=== PATIENT | male | born 1960 | race Caucasian/White ===

== ENCOUNTER 2018-12-02 18:41 | Emergency (ER) | payer SELFPAY ==
[~2018-12-02] VITALS: Ht 180.3 cm; Wt 81.6 kg
--- OUTSIDE RECORDS SUMMARY | 2018-12-02 18:47 | XMS REPORT | Continuity of Care Document ---
Author Author [facility] Organization [facility] Address Unknown Phone Unavailable Allergies Active Description Code Type Severity Reaction Onset Reported/Identified Relationship to Patient Clinical Status Yes No Known Medication Allergies Drug N/A N/A Medications There is no data. Problems There is no data. Procedures There is no data. Results There is no data. Encounters ACCT No. Visit Date/Time Discharge Status Pt. Type Provider Facility Loc./Unit Complaint [id number] 08/21/2018 07:33:40 08/21/2018 23:59:59 DIS Outpatient THOMAS GOODMAN [facility] [id number] 08/21/2018 00:53:00 08/21/2018 03:40:00 DIS Emergency THOMAS GOODMAN [facility] ER
[2018-12-02] MEDS ORDERED: HYDROcodone/APAP 5 MG/325 MG (LORTAB) TAB PO STA (19:03)
--- NOTE | 2018-12-02 19:07 | ED Upper Extremity ---
General Chief Complaint: Upper Extremity Stated Complaint: LT HAND MIDDLE DIGIT SMASHED History of Present Illness Date Seen by Provider: Dec 02, 2018 Time Seen by Provider: 18:56 This is a 58-year-old man with no chronic medical problems and takes no medicines on a regular basis here with a left third finger injury that occurred shortly prior to arrival. He slammed it with a car door. He has constant, moderate, throbbing, nonradiating pain is worse with direct palpation over the distal third finger. No other injuries. Allergies and Home Medications Allergies Coded Allergies: No Known Drug Allergies (Unverified , 12/02/18) Patient Home Medication List Home Medication List Reviewed: Yes Review of Systems Constitutional: no symptoms reported EENTM: no symptoms reported Respiratory: no symptoms reported Cardiovascular: no symptoms reported Gastrointestinal: no symptoms reported Genitourinary: no symptoms reported Musculoskeletal: see HPI Skin: no symptoms reported Psychiatric/Neurological: No Symptoms Reported Past Lmtuidy-Sqxmwt-Ioemgq Hx Past Med/Social Hx: Reviewed Nursing Past Med/Soc Hx Patient Social History Recent Foreign Travel: No Contact w/Someone Who Travel: No Physical Exam Vital Signs Vital Signs - First Documented 12/02/18 19:02 Temp 98.3 Pulse 82 Resp 14 B/P (MAP) 141/52 (81) Pulse Ox 97 O2 Delivery Room Air Capillary Refill : Height, Weight, BMI Height: '" Weight: lbs. oz. kg; BMI Method: General Appearance: no apparent distress HEENT: PERRL/EOMI Neck: supple Cardiovascular: normal peripheral pulses, regular rate, rhythm Respiratory: lungs clear Gastrointestinal: non tender, soft Hand: swelling (there is ecchymosis over the palmar distal third digit of the left hand, there is no skin break, there is no subungual hematoma, range of motion is limited by pain and swelling) Neurologic/Tendon: other (sensation to light touch is grossly intact in the affected digit, motor function is also grossly intact with limited range of motion as documented above) Skin: warm/dry Progress/Results/Core Measures Results/Orders My Orders Orders - LONA HARRIS DO Hydrocodone/Apap 5/325 Tablet (Lortab 5 (12/02/18 19:03) Hand 2 View Left (12/02/18 19:03) Vital Signs/I&O 12/02/18 19:02 Temp 98.3 Pulse 82 Resp 14 B/P (MAP) 141/52 (81) Pulse Ox 97 O2 Delivery Room Air Progress Progress Note #1: Progress Note We'll obtain an x-ray. Will apply ice and elevate the hand. We will treat with [place] for analgesia. Progress Note #2: Progress Note Splint applied, RICE reviewed, f/u ortho. Return if worse. Departure Impression Primary Impression: Fracture of phalanx of hand Disposition: HOME, SELF-CARE Condition: Stable Departure-Patient Inst. Referrals: NO,LOCAL PHYSICIAN (PCP) Primary Care Physician Patient Instructions: Finger Fracture Scripts Hydrocodone/Acetaminophen ([place] 5-325 Tablet) 1 Each Tablet 1 TAB PO Q6H for Pain MDD 10 TABS for 4 Days, #16 TAB Prov: LONA HARRIS DO 12/02/18 LONA HARRIS DO Dec 02, 2018 19:07
--- NOTE | 2018-12-02 19:15 | Diagnostic Imaging Report ---
INDICATION: Trauma, pain to the middle finger of the left hand Two views of the left hand show a nondisplaced intra-articular fracture involving the dorsal aspect of the distal phalanx at the DIP joint of the third finger. No other abnormality is seen. IMPRESSION: There is an intra-articular fracture of the distal phalanx of the left third finger. Dictated by: Dictated on workstation # [id number]
[2018-12-02] MEDS ORDERED: HYDR-4226 PO (19:20)
[2018-12-02 19:36] VITALS: BP 132/64
== END 2018-12-02 19:36 | disposition home or self-care (01) ==
LOC: ER FS 18:43
DX: S62.633A Displaced fracture of distal phalanx of left middle finger, initial encounter for closed fracture (principal); W23.1XXA Caught, crushed, jammed, or pinched between stationary objects, initial encounter
CPT/HCPCS: 26755; 73120

== ENCOUNTER → 2019-01-09 | Outpatient (CLI) | payer MEDICAID ==
[~2019-01-09] MED LIST: HYDR-4226 PO
--- NOTE | 2019-01-09 10:55 | Diagnostic Imaging Report ---
Indication: Smashed left third finger one month ago. Time of exam 10:34 AM Correlation is made with prior radiographs from 12/02/2018. A fracture at the base of the distal phalanx third finger is again seen. A fracture line remains visible consistent with incomplete healing. Alignment is similar to prior exam. No new abnormality is identified. Impression: A fracture involving the base of the distal phalanx third finger remains clearly visible without significant healing. Dictated by: Dictated on workstation # [id number]
== END ==
LOC: RAD FS 10:29
PROVIDERS: ATTEND Nurse Practitioner
DX: S62.633D Displaced fracture of distal phalanx of left middle finger, subsequent encounter for fracture with routine healing (principal); W23.0XXD Caught, crushed, jammed, or pinched between moving objects, subsequent encounter
CPT/HCPCS: 73140

== ENCOUNTER → 2019-02-02 | Outpatient (CLI) | payer MEDICAID ==
--- NOTE | 2019-02-02 16:43 | Diagnostic Imaging Report ---
INDICATION: Fracture, followup. TECHNIQUE: Three views left middle finger 2:36 PM. CORRELATION STUDY: 01/09/2019 FINDINGS: Fracture at the base of the distal phalanx of the middle finger is again demonstrated. Fracture line remains well visualized. There is very little if any interval healing suggested. Slight dorsal displacement of the most proximal fracture fragment is unchanged. Fracture lines do involve the distal phalangeal joint. Proximal middle phalanx unremarkable. IMPRESSION: 1. Relatively stable appearance about a mildly displaced, comminuted fracture at the base of the distal phalanx of the third finger. Fracture lines remain well-visualized with slight dorsal displacement of the main proximal fracture fragment. Dictated by: Dictated on workstation # [id number]
== END ==
LOC: RAD FS 14:31
PROVIDERS: ATTEND Nurse Practitioner
DX: S62.632D Displaced fracture of distal phalanx of right middle finger, subsequent encounter for fracture with routine healing (principal)
CPT/HCPCS: 73140

== ENCOUNTER → 2019-06-22 | Outpatient (CLI) | payer MEDICAID | LOC: CARD 08:29 | PROVIDERS: ATTEND Nurse Practitioner | DX: R06.81 Apnea, not elsewhere classified (principal); R20.2 Paresthesia of skin; R41.0 Disorientation, unspecified; Z86.73 Personal history of transient ischemic attack (TIA), and cerebral infarction without residual deficits | CPT/HCPCS: 93306 ==

== ENCOUNTER 2019-08-07 19:32 | Outpatient (CLI) | payer MEDICAID | END 2019-08-08 06:44 | disposition home or self-care (01) | LOC: SLEEP 19:32 | PROVIDERS: ATTEND Nurse Practitioner | DX: G47.33 Obstructive sleep apnea (adult) (pediatric) (principal); L30.9 Dermatitis, unspecified; R20.2 Paresthesia of skin; R41.0 Disorientation, unspecified; Z86.73 Personal history of transient ischemic attack (TIA), and cerebral infarction without residual deficits; Z87.891 Personal history of nicotine dependence | CPT/HCPCS: 95810 ==

== ENCOUNTER 2020-04-29 11:25 | Emergency (ER) | payer MEDICAID ==
[~2020-04-29] VITALS: Ht 181 cm; Wt 84.0 kg
--- NOTE | 2020-04-29 11:52 | ED Back Pain ---
General Chief Complaint: Back Problems Stated Complaint: BACK PAIN Source of Information: Patient History of Present Illness Date Seen by Provider: Apr 29, 2020 Time Seen by Provider: 11:48 Initial Comments 60 year-old male presents with right low back pain after fall down 3 steps inside his house today. States he landed on his right low back. Pain localized without radiation or lower extremities. Denies any weakness or incoordination. States he can walk fine. No loss of bowel or bladder control. Has taken nothing for pain Allergies and Home Medications Allergies Coded Allergies: No Known Drug Allergies (Unverified , 12/02/18) Home Medications Hydrocodone/Acetaminophen 1 Each Tablet, 1 TAB PO Q6H Prescribed by: LONA HARRIS on 12/02/181919 Patient Home Medication List Home Medication List Reviewed: Yes Review of Systems Constitutional: no symptoms reported; No dizziness, No fever, No malaise, No weakness Respiratory: No cough, No dyspnea on exertion, No short of breath Cardiovascular: No chest pain, No edema, No palpitations Gastrointestinal: No abdominal pain, No vomiting Musculoskeletal: back pain; No joint pain; muscle pain Skin: No change in color, No lumps, No rash Psychiatric/Neurological: Denies Numbness, Denies Paresthesia Past Cdyuere-Rqcreo-Eylgnc Hx Past Med/Social Hx: Reviewed Nursing Past Med/Soc Hx Patient Social History Alcohol Use: Denies Use Recreational Drug Use: No Smoking Status: Current Everyday Smoker Type Used: Cigarettes 2nd Hand Smoke Exposure: No Recent Foreign Travel: No Contact w/Someone Who Travel: No Recent Hopitalizations: No Physical Abuse: No Sexual Abuse: No Mistreated: No Fear: No Seasonal Allergies Seasonal Allergies: No Past Medical History Surgeries: Yes (Hernia repair x2) Respiratory: No Sleep Apnea Cardiac: No Neurological: Yes (restless leg syndrome) Genitourinary: No Gastrointestinal: No Musculoskeletal: No Endocrine: No HEENT: No Cancer: No Psychosocial: No Integumentary: No Blood Disorders: No Adverse Reaction/Blood Tranf: No Physical Exam Vital Signs Vital Signs - First Documented 04/29/20 11:35 Temp 37.1 Pulse 82 Resp 18 B/P (MAP) 132/81 (98) Pulse Ox 98 O2 Delivery Room Air Capillary Refill : Height, Weight, BMI Height: 5'11.00" Weight: 180lbs. oz. 81.913307wl; BMI Method:Stated General Appearance: No Apparent Distress, WD/WN Neck: Full Range of Motion, Non Tender, Supple Cardiovascular: Regular Rate, Rhythm, No Edema Respiratory: Chest Non Tender, Lungs Clear Gastrointestinal: Non Tender, Soft Back: Normal Inspection, Decreased Range of Motion (2 to discomfort), Muscle Spasm (R paraspinal ms), Vertebral Tenderness (generalized mid lumbar spine) Extremity: Normal Capillary Refill, Non Tender, No Pedal Edema Neurologic/Psychiatric: Alert, Oriented x3, No Motor/Sensory Deficits, Normal Mood/Affect Skin: Normal Color, Warm/Dry, Other (no ecchymosis or abrasion) Progress/Results/Core Measures Results/Orders My Orders Orders - RADHA JOINER DO Lumbar Spine 2 Or 3 View (04/29/20 11:46) Vital Signs/I&O 04/29/20 11:35 Temp 37.1 Pulse 82 Resp 18 B/P (MAP) 132/81 (98) Pulse Ox 98 O2 Delivery Room Air Departure Impression Primary Impression: Strain of lumbar spine Qualified Codes: S39.012A - Strain of muscle, fascia and tendon of lower back, initial encounter Disposition: HOME, SELF-CARE Condition: Stable Departure-Patient Inst. Decision time for Depature: 12:30 Referrals: [facility] (PCP/Family) Primary Care Physician Patient Instructions: Lumbar Muscle Strain (DC) Scripts Ibuprofen (Ibuprofen) 800 Mg Tablet 800 MG PO Q8H PRN for PAIN, #30 TAB 0 Refills Prov: RADHA JOINER DO 04/29/20 Cyclobenzaprine HCl (Cyclobenzaprine HCl) 10 Mg Tablet 10 MG PO Q8H PRN for SPASMS, #20 TAB 0 Refills Prov: RADHA JOINER DO 04/29/20 Work/School Note: Work Release Form Date Seen in the Emergency Department: Apr 29, 2020 RADHA JOINER DO Apr 29, 2020 11:52
--- NOTE | 2020-04-29 12:22 | Diagnostic Imaging Report ---
INDICATION: Fall and low back pain. TIME OF EXAM: 12:07 p.m. EXAMINATION: AP and lateral views of the lumbar spine were obtained. FINDINGS: Curvature and alignment is normal. Vertebral body heights are maintained. No acute compression fractures are seen. Disc spaces are preserved. IMPRESSION: No acute bony abnormality is detected. Dictated by: Dictated on workstation # [id number]
[2020-04-29] MEDS ORDERED: IBUP-1780 PO (12:30)
[2020-04-29] MEDS ORDERED: CYCL10TA9 PO (12:30)
[2020-04-29 12:36] VITALS: BP 133/67
== END 2020-04-29 12:36 | disposition home or self-care (01) ==
LOC: EDUNIT# 11:25 → ER FS 11:27
DX: S39.012A Strain of muscle, fascia and tendon of lower back, initial encounter (principal); F17.210 Nicotine dependence, cigarettes, uncomplicated; W10.9XXA Fall (on) (from) unspecified stairs and steps, initial encounter; Y92.009 Unspecified place in unspecified non-institutional (private) residence as the place of occurrence of the external cause
CPT/HCPCS: 72100

== ENCOUNTER 2021-11-16 13:25 | Emergency (ER) | payer MEDICAID ==
[~2021-11-16 13:25] MED LIST changes: +CYCL10TA25 PO; +IBUP-1780 PO
--- NOTE | 2021-11-16 13:56 | ED General ---
General Chief Complaint: Abdominal/GI Problems Stated Complaint: LEFT SIDE PAIN Nursing Triage Note: PT REPORTS HE LIFTED 2 TOILETS OFF OF A TRAILER YESTERDAY AND NOW HIS LEFT SIDE HURTS FROM HIS RIBS DOWN INTO LOWER ABDOMEN. Source of Information: Patient History of Present Illness Date Seen by Provider: Nov 16, 2021 Time Seen by Provider: 13:33 Initial Comments 61-year-old male presenting with complaints of pain to his left side of his chest and abdomen. He states this started 1 week ago when he was lifting toilets and having to move them in a small space. This was forcing him to lift the toilet and then twist and set it back down. In the process of doing this he was causing pain to his left side of his chest and abdomen. He denies any direct trauma or fall. He was trying Tylenol for the pain but it was not helping. He thought that he had may be pulled a muscle but since he was still having pain he came to the ED to be checked out. Timing/Duration: 1 Week Severity: Severe Modifying Factors: worse with Movement Associated Systoms: No Cough, No Diaphoresis, No Fever/Chills, No Headaches, No Loss of Appetite, No Malaise, No Nausea/Vomiting, No Rash, No Seizure, No Shortness of Air, No Syncope, No Weakness Allergies and Home Medications Allergies Coded Allergies: No Known Drug Allergies (Unverified , 12/02/18) Patient Home Medication List Home Medication List Reviewed: Yes Cyclobenzaprine HCl (Cyclobenzaprine HCl) 10 Mg Tablet, 10 MG PO BID PRN for MUSCLE SPASMS Prescribed by: ULYSSES BRANDT on 11/16/21 1532 Ibuprofen (Ibuprofen) 800 Mg Tablet, 800 MG PO Q8H PRN for PAIN Prescribed by: ULYSSES BRANDT on 11/16/21 1532 Discontinued Medications Cyclobenzaprine HCl (Cyclobenzaprine HCl) 10 Mg Tablet, 10 MG PO Q8H PRN for SPASMS Prescribed by: RADHA JOINER on 04/29/20 1230 Hydrocodone/Acetaminophen (Hydrocodone/Acetaminophen 5 MG/325 MG TAB) 1 Each Tablet, 1 TAB PO Q6H Prescribed by: LONA HARRIS on 12/02/18 1920 Ibuprofen (Ibuprofen) 800 Mg Tablet, 800 MG PO Q8H PRN for PAIN Prescribed by: RADHA JOINER on 04/29/20 1230 Review of Systems Review of Systems Constitutional: No chills, No fever EENTM: no symptoms reported Respiratory: no symptoms reported; No cough, No short of breath Cardiovascular: see HPI Gastrointestinal: see HPI; No constipation, No diarrhea, No nausea, No vomiting Genitourinary: No dysuria, No frequency, No hematuria Musculoskeletal: muscle cramps (Left-sided chest and abdominal wall) Skin: No change in color Psychiatric/Neurological: No Symptoms Reported Hematologic/Lymphatic: No Symptoms Reported Past Vewemno-Wvwpeh-Nubvjt Hx Patient Social History Tobacco Use?: Yes Tobacco type used: Cigarettes Smoking Status: Current Everyday Smoker Use of E-Cig and/or Vaping dev: No Substance use?: No Alcohol Use?: No Pt feels they are or have been: No Seasonal Allergies Seasonal Allergies: No Past Medical History Surgery/Hospitalization HX: HERNIA Surgeries: Yes (Hernia repair x2) Respiratory: No Sleep Apnea Cardiac: No Neurological: Yes (restless leg syndrome) Genitourinary: No Gastrointestinal: No Musculoskeletal: No Endocrine: No HEENT: No Cancer: No Psychosocial: No Integumentary: No Blood Disorders: No Adverse Reaction/Blood Tranf: No Physical Exam Vital Signs Vital Signs - First Documented 11/16/21 13:30 Temp 37.2 Pulse 68 Resp 18 B/P (MAP) 138/63 (88) Pulse Ox 98 O2 Delivery Room Air Capillary Refill : Less Than 3 Seconds Height, Weight, BMI Height: 5'11.00" Weight: 180lbs. oz. 81.086902zv; 25.00 BMI Method:Stated General Appearance: No Apparent Distress Neck: Full Range of Motion, Normal Inspection, Non Tender, Supple Respiratory: Lungs Clear, Normal Breath Sounds, No Accessory Muscle Use, No Respiratory Distress, Other (Tender to palpation on the left side of the chest wall without crepitus) Cardiovascular: Regular Rate, Rhythm, Normal Peripheral Pulses Gastrointestinal: Normal Bowel Sounds, No Pulsatile Mass, Soft; No Distended, No Guarding, No Rebound; Tenderness (Mild tenderness of the left side of the abdominal wall without rebound or guarding) Extremity: Normal Capillary Refill, Normal Inspection, No Pedal Edema Neurologic/Psychiatric: Alert, Oriented x3, knee bolter II-XII Norm as Tested Skin: Normal Color, Warm/Dry Progress/Results/Core Measures Suspected Sepsis SIRS Temperature: Pulse: 68 Respiratory Rate: 18 Blood Pressure 138 /63 Mean: 88 Results/Orders Lab Results Laboratory Tests Test 11/16/21 13:30 Range/Units Urine Color YELLOW Urine Clarity CLEAR Urine pH 6.5 5-9 Urine Specific [place] 1.015 L 1.016-1.022 Urine Protein NEGATIVE NEGATIVE Urine Glucose (UA) NEGATIVE NEGATIVE Urine Ketones NEGATIVE NEGATIVE Urine Nitrite NEGATIVE NEGATIVE Urine Bilirubin NEGATIVE NEGATIVE Urine Urobilinogen 0.2 < = 1.0 MG/DL Urine Leukocyte Esterase NEGATIVE NEGATIVE Urine RBC (Auto) NEGATIVE NEGATIVE Urine RBC 0-2 /HPF Urine WBC RARE /HPF Urine Crystals NONE /LPF Urine Bacteria NEGATIVE /HPF Urine Casts NONE /LPF Urine Mucus LARGE H /LPF Urine Culture Indicated NO Urine Opiates Screen NEGATIVE NEGATIVE Urine Oxycodone Screen NEGATIVE NEGATIVE Urine Methadone Screen NEGATIVE NEGATIVE Urine Propoxyphene Screen NEGATIVE NEGATIVE Urine Barbiturates Screen NEGATIVE NEGATIVE Ur Tricyclic Antidepressants Screen NEGATIVE NEGATIVE Urine Phencyclidine Screen NEGATIVE NEGATIVE Urine Amphetamines Screen NEGATIVE NEGATIVE Urine Methamphetamines Screen NEGATIVE NEGATIVE Urine Benzodiazepines Screen NEGATIVE NEGATIVE Urine Cocaine Screen NEGATIVE NEGATIVE Urine Cannabinoids Screen NEGATIVE NEGATIVE My Orders Orders - ULYSSES BRANDT MD Ua Culture If Indicated (11/16/21 13:31) Ct Abdomen/Pelvis Wo (11/16/21 13:31) Drug Screen Stat (Urine) (11/16/21 13:31) Vital Signs/I&O 11/16/21 11/16/21 13:30 15:10 Temp 37.2 37.2 Pulse 68 69 Resp 18 18 B/P (MAP) 138/63 (88) 137/66 Pulse Ox 98 98 O2 Delivery Room Air Room Air Capillary Refill : Less Than 3 Seconds Blood Pressure Mean: 88 Progress Note #1: Progress Note Initially ordered work-up for possible kidney stone however with his symptoms being more related to lifting and moving things reduce that to his urine test and drug screen in case narcotics need to be ordered. Also ordered a CT scan of the abdomen and pelvis without contrast to evaluate for possible kidney stone or intra-abdominal process to be contributing to his pain Progress Note #2: Progress Note No acute significant normality on his urinalysis or drug screen. His CT scan did not show any acute intra-abdominal process to account for his pain. Treat with a muscle relaxer and anti-inflammatories. Counseled to follow-up through the clinic for continued concerns Diagnostic Imaging Diagonstic Imaging: CT Plain Films/CT/US/NM/MRI: abdomen, pelvis Comments [facility] [place], [place] NAME: ISAAK MIRANDA [facility] REC#: [id number] PT STATUS: REG ER : 1960 PHYSICIAN: ULYSSES BRANDT MD ADMIT DATE: 11/16/21/ER FS Signed Date of Exam:11/16/21 CT ABDOMEN/PELVIS WO EXAMINATION: CT abdomen and pelvis without contrast. TECHNIQUE: Multiple contiguous axial images were obtained through the abdomen and pelvis without the use of intravenous contrast. All CT scans use one or more of the following dose optimizing techniques: automated exposure control, MA and/or KvP adjustment based on patient size and exam type or iterative reconstruction. HISTORY: Flank pain. COMPARISON: None available. FINDINGS: Lung bases: The lung bases are clear. Solid organs: A subcentimeter right hepatic cyst is present. The liver is otherwise unremarkable. The gallbladder is normal. There is no biliary ductal dilation. Pancreas is normal. Spleen is normal. Adrenal glands are normal. The kidneys are normal without visualized calculus or hydronephrosis. Bowel: The stomach and small bowel are normal without obstruction. The colon and appendix are normal. Peritoneum: There is no intraperitoneal free fluid or free air. No suspicious lymphadenopathy. Vasculature: Calcification of the aorta without aneurysm. Musculoskeletal: No suspicious osseous lesion or compression fracture. Pelvis: The prostate gland is normal. There is bladder wall thickening. IMPRESSION: 1. No visualized renal calculus or hydronephrosis. No other acute abnormality in the abdomen or pelvis. 2. Mild bladder wall thickening. Recommend correlation with urinalysis. Dictated by: Dictated on workstation # [id number] Dict: 11/16/21 1349 Trans: 11/16/21 140 [id number] Interpreted by: KISHORE DURAN DO Electronically signed by: KISHORE DURAN DO 11/16/21 1407 Reviewed: Reviewed by Me Departure Impression Primary Impression: Muscle strain of chest wall Qualified Codes: S29.011A - Strain of muscle and tendon of front wall of thorax, initial encounter Additional Impression: Strain of muscle, fascia and tendon of abdomen, initial encounter Disposition: HOME, SELF-CARE Condition: Stable Departure-Patient Inst. Decision time for Depature: 15:32 Referrals: WILY GREGG APRN (PCP/Family) Primary Care Physician Patient Instructions: Muscle Strain ED, Abdominal Muscle Strain ED Add. Discharge Instructions: alternate ice and heat to chest and abdominal wall to help with muscle strain. Take the muscle relaxer and anti-inflammatory medicine to help with muscle str ain and inflammation. Check with clinic if not improving or having continued problems All discharge instructions reviewed with patient and/or family. Voiced understanding. Scripts Ibuprofen (Ibuprofen) 800 Mg Tablet 800 MG PO Q8H PRN for PAIN for 10 Days, #30 TAB 0 Refills Prov: ULYSSES BRANDT MD 11/16/21 Cyclobenzaprine HCl (Cyclobenzaprine HCl) 10 Mg Tablet 10 MG PO BID PRN for MUSCLE SPASMS for 10 Days, #20 TAB 0 Refills Prov: ULYSSES BRANDT MD 11/16/21 ULYSSES BRANDT MD Nov 16, 2021 13:55
[2021-11-16 14:09] LABS: BILIRUBIN,URINE NEGATIVE (NEGATIVE); CLARITY,URINE CLEAR; COLOR,URINE YELLOW; GLUCOSE, URINE (UA) NEGATIVE (NEGATIVE); KETONES,URINE NEGATIVE (NEGATIVE); LEUKOCYTE ESTERASE ,URINE NEGATIVE (NEGATIVE); NITRITE,URINE NEGATIVE (NEGATIVE); PH,URINE 6.5 (5-9); PROTEIN,URINE NEGATIVE (NEGATIVE)
[2021-11-16 14:12] LABS: BACTERIA,URINE NEGATIVE /HPF; RBC,URINE 0-2 /HPF; WBC,URINE RARE /HPF
[2021-11-16 14:20] LABS: AMPHETAMINE SCREEN, URINE NEGATIVE (NEGATIVE); BARBITURATE SCREEN URINE NEGATIVE (NEGATIVE); BENZODIAZEPINES SCREEN URINE NEGATIVE (NEGATIVE); CANNABINOID SCREEN, URINE NEGATIVE (NEGATIVE); COCAINE SCREEN URINE NEGATIVE (NEGATIVE); METHADONE STAT NEGATIVE (NEGATIVE); METHAMPHETAMINE SCREEN URINE S NEGATIVE (NEGATIVE); OPIATE SCREEN URINE NEGATIVE (NEGATIVE); OXYCODONE STAT NEGATIVE (NEGATIVE); PROPOXYPHENE STAT NEGATIVE (NEGATIVE); TRICYCLIC ANTIDEPRESSANTS SCRE NEGATIVE (NEGATIVE)
[2021-11-16 15:10] VITALS: BP 137/66
[2021-11-16] MEDS ORDERED: IBUP-1780 PO (15:32)
[2021-11-16] MEDS ORDERED: CYCL10TA25 PO (15:32)
== END 2021-11-16 15:34 | disposition home or self-care (01) ==
LOC: EDUNIT# 13:25 → ER FS 13:27
DX: S29.011A Strain of muscle and tendon of front wall of thorax, initial encounter (principal); S39.011A Strain of muscle, fascia and tendon of abdomen, initial encounter; F17.210 Nicotine dependence, cigarettes, uncomplicated; X50.1XXA Overexertion from prolonged static or awkward postures, initial encounter
CPT/HCPCS: 74176; 80306; 81000

== ENCOUNTER 2022-03-12 21:14 | Emergency (ER) | payer MEDICAID ==
[~2022-03-12] VITALS: Ht 180 cm; Wt 88.3 kg
[2022-03-12] MEDS ORDERED: KETOROLAC 60 MG/2 ML VIAL IM STA (21:49)
[2022-03-12] MEDS ORDERED: KETOROLAC 60 MG/2 ML VIAL ONE (21:56)
--- NOTE | 2022-03-12 22:14 | Diagnostic Imaging Report ---
EXAMINATION: CT head without contrast. TECHNIQUE: Multiple contiguous axial images were obtained through the brain without the use of intravenous contrast. All CT scans use one or more of the following dose optimizing techniques: automated exposure control, MA and/or KvP adjustment based on patient size and exam type or iterative reconstruction. HISTORY: Blurry vision. Headache. COMPARISON: None available. FINDINGS: No large acute territorial ischemia, mass, or hemorrhage. No midline shift or mass effect. The ventricles, cortical sulci and basilar cisterns are patent and unremarkable. The orbits are normal. Fluid level is seen in the left maxillary sinus. Additional retained secretions are seen in left sphenoid sinus. Right-sided mastoid effusion is present. No soft tissue abnormality is seen. No osseus lesions or fractures are seen. IMPRESSION: 1. No large acute territorial ischemia, mass, or hemorrhage. 2. Paranasal sinus disease involving the left maxillary and sphenoid sinuses. 3. Right-sided mastoid effusion. Dictated by: Dictated on workstation # [id number]
[2022-03-12] MEDS ORDERED: cefTRIAXone 1,000 MG VIAL IM STA (22:40)
[2022-03-12] MEDS ORDERED: LIDOCAINE 1% INJ 50 ML (XYLOCAINE) VIAL ONE (22:43)
[2022-03-12] MEDS ORDERED: cefTRIAXone 1,000 MG VIAL ONE (22:43)
[2022-03-12] MEDS ORDERED: LIDOCAINE 1% INJ 20 ML VIAL INJ ONE (22:45)
[2022-03-12] MEDS ORDERED: GUAI120013 PO (22:46)
[2022-03-12] MEDS ORDERED: AMOX1TAB12 PO (22:46)
--- NOTE | 2022-03-12 22:46 | ED EENT ---
History of Present Illness General Chief Complaint: Eye Problems Stated Complaint: L EYE PAIN Nursing Triage Note: Pt c/o left eye pain and blurry vision x 2-3 hours. Pt denies any injury or trauma, numbness/tingling to extremities. Took ASA and Tylenol [employer]. Source: patient History of Present Illness Date Seen by Provider: Mar 12, 2022 Time Seen by Provider: 22:14 Initial Comments 62-year-old male presenting with complaint of sudden onset pain and pressure behind left eye with blurred vision. He denies fever or chills. He does have some pressure in his ears. He denies any direct trauma to his head or face. He has previously had a stroke so he was concerned that might be causing his symptoms today. Timing/Duration: abrupt Severity: moderate Location: eye (L) Prearrival Treatment: no prearrival treatment Associated Symptoms: No change in hearing, No cough, No drooling, No ear drainage; facial pain/swelling (Left cheek and behind his left eye he complained of pain but did not have any swelling); No fever, No malaise, No nasal congestion/drainage, No poor fluid intake, No poor solids intake, No sore throat, No tooth pain, No voice change Allergies and Home Medications Allergies Coded Allergies: No Known Drug Allergies (Unverified , 12/02/18) Patient Home Medication List Home Medication List Reviewed: Yes Amoxicillin/Potassium Clav (Amox Tr-K Clv 875-125 mg Tab) 875 Mg-125 Mg Tablet, 1 EACH PO BID Prescribed by: ULYSSES BRANDT on 03/12/222245 Cyclobenzaprine HCl (Cyclobenzaprine HCl) 10 Mg Tablet, 10 MG PO BID PRN for MUSCLE SPASMS Prescribed by: ULYSSES BRANDT on 11/16/21 153 Guaifenesin (Mucinex) 1,200 Mg Tab.er.12h, 1,200 MG PO Q12H Prescribed by: ULYSSES BRANDT on 03/12/222245 Ibuprofen (Ibuprofen) 800 Mg Tablet, 800 MG PO Q8H PRN for PAIN Prescribed by: ULYSSES BRANDT on 11/16/21 153 Review of Systems Review of Systems Constitutional: No chills, No dizziness, No fever Eyes: See HPI, Blurred Vision (Blurred vision from the left eye but had no difficulty with the vision chart) Ears: No Symptoms Reported Nose: no symptoms reported Mouth: no symptoms reported Throat: no symptoms reported Respiratory: no symptoms reported Cardiovascular: no symptoms reported Gastrointestinal: no symptoms reported Musculoskeletal: no symptoms reported Skin: No rash Neurological: Headache (Left-sided pressure behind his eye) Past Dxxcmkf-Dwjevz-Ldmsxm Hx Patient Social History Tobacco type used: Cigarettes Smoking Status: Current Everyday Smoker Use of E-Cig and/or Vaping dev: No Substance use?: No Alcohol Use?: No Pt feels they are or have been: No Immunizations Up To Date Influenza Vaccine Up-to-Date: No; Not Current First/Initial COVID19 Vaccinat: denies Seasonal Allergies Seasonal Allergies: No Past Medical History Surgery/Hospitalization HX: HERNIA Surgeries: Yes (Hernia repair x2) Respiratory: No Sleep Apnea Cardiac: No Neurological: Yes (restless leg syndrome) Genitourinary: No Gastrointestinal: No Musculoskeletal: No Endocrine: No HEENT: No Cancer: No Psychosocial: No Integumentary: No Blood Disorders: No Adverse Reaction/Blood Tranf: No Physical Exam Vital Signs Vital Signs - First Documented 03/12/22 21:15 Temp 37.4 Pulse 101 Resp 17 B/P (MAP) 125/80 (95) Pulse Ox 96 O2 Delivery Room Air Height, Weight, BMI Height: 5'11.00" Weight: 180lbs. oz. 81.165261vi; 27.00 BMI Method:Stated General Appearance: WD/WN, no apparent distress Eyes: bilateral eye PERRL, bilateral eye EOMI Ears: bilateral ear foreign body (Bilateral cerumen blocking his canals and preventing me from seeing his TM on either side) Nose: sinus tenderness (Tender to palpation over the left Maxillary sinus and around his eye.) Neck: non-tender, full range of motion, supple, normal inspection Cardiovascular: normal peripheral pulses, regular rate, rhythm Respiratory: chest non-tender, lungs clear, normal breath sounds, no respira tory distress, no accessory muscle use Neurologic/Psychiatric: inner layer scrubber tender II-XII nml as tested, no motor/sensory deficits, alert, normal mood/affect, oriented x 3 Skin: normal color, warm/dry Progress/Results/Core Measures Results/Orders My Orders Orders - ULYSSES BRANDT MD Ct Head Wo (03/12/22 21:49) Ketorolac Injection (Toradol Injection) (03/12/22 21:49) Ceftriaxone (Rocephin) (03/12/22 22:40) Lidocaine 1% Inj 20 Ml (Xylocaine 1% Inj (03/12/22 22:45) Ketorolac Injection (Toradol Injection) (03/12/22 21:56) Ceftriaxone (Rocephin) (03/12/22 22:43) Lidocaine 1% Inj 50 Ml (Xylocaine 1% Inj (03/12/22 22:43) Medications Given in ED Current Medications Medications Dose Ordered Sig/Ben Route Start Time Stop Time Status Last Admin Dose Admin Lidocaine HCl 2.1 ml ONCE ONCE INJ 03/12/22 22:45 03/12/22 22:46 DC 03/12/22 22:47 2.1 ML Vital Signs/I&O 03/12/22 03/12/22 21:15 22:57 Temp 37.4 37.4 Pulse 101 101 Resp 17 17 B/P (MAP) 125/80 (95) 125/80 Pulse Ox 96 96 O2 Delivery Room Air Room Air Blood Pressure Mean: 95 Progress Progress Note #1: Progress Note As that was a new performing a procedure under local patient when this patient initially arrived a CT scan of his head was ordered as well as a dose of Toradol in case this might be an atypical migraine. Progress Note #2: Progress Note None review of his results of the CT scan he had paranasal and maxillary sinus disease on the left. There are some fluid in the mastoid on the right. Counseled on findings and patient reported he did have some improvement in symptoms with the Toradol. Treat with Rocephin 1 g IM here and continue oral antibiotics to treat for sinusitis. Counseled on using Mucinex to help thin his secretions and mucus. Diagnostic Imaging Diagonstic Imaging: CT Plain Films/CT/US/NM/MRI: head Comments [facility], [place] NAME: ISAAK MIRANDA [facility] REC#: [id number] PT STATUS: REG ER : 1960 PHYSICIAN: ULYSSES BRANDT MD ADMIT DATE: 03/12/22/ER FS Signed Date of Exam:03/12/22 CT HEAD WO EXAMINATION: CT head without contrast. TECHNIQUE: Multiple contiguous axial images were obtained through the brain without the use of intravenous contrast. All CT scans use one or more of the following dose optimizing techniques: automated exposure control, MA and/or KvP adjustment based on patient size and exam type or iterative reconstruction. HISTORY: Blurry vision. Headache. COMPARISON: None available. FINDINGS: No large acute territorial ischemia, mass, or hemorrhage. No midline shift or mass effect. The ventricles, cortical sulci and basilar cisterns are patent and unremarkable. The orbits are normal. Fluid level is seen in the left maxillary sinus. Additional retained secretions are seen in left sphenoid sinus. Right-sided mastoid effusion is present. No soft tissue abnormality is seen. No osseus lesions or fractures are seen. IMPRESSION: 1. No large acute territorial ischemia, mass, or hemorrhage. 2. Paranasal sinus disease involving the left maxillary and sphenoid sinuses. 3. Right-sided mastoid effusion. Dictated by: Dictated on workstation # [id number] Dict: 03/12/222209 Trans: 03/12/222214 [facility] [id number] Interpreted by: QUIRINO NUNEZ DO Electronically signed by: QUIRINO NUNEZ DO 03/12/222214 Reviewed: Reviewed by Me Departure Impression Primary Impression: Left maxillary sinusitis Additional Impressions: Paranasal sinus disease Blurred vision, left eye Disposition: 01 HOME, SELF-CARE Condition: Stable Departure-Patient Inst. Decision time for Depature: 22:42 Referrals: WILY GREGG APRN (PCP/Family) Primary Care Physician Patient Instructions: Sinusitis, Adult ED Add. Discharge Instructions: Take a full course of antibiotics to treat for sinus disease and pressure in your left face and behind the eye. Consider taking plain Mucinex or guaifenesin [id number] to help thin out secretions and mucus in your sinus as well as with your dry smoker's cough Check back with clinic for continued problems All discharge instructions reviewed with patient and/or family. Voiced under standing. Scripts Guaifenesin (Mucinex) 1,200 Mg Tab.er.12h 1200 MG PO Q12H for sinusitis/smoker's cough for 7 Days, #14 TAB 0 Refills Prov: ULYSSES BRANDT MD 03/12/22 Amoxicillin/Potassium Clav (Amox Tr-K Clv 875-125 mg Tab) 875 Mg-125 Mg Tablet 1 EACH PO BID for sinusitis for 10 Days, #20 TAB 0 Refills Prov: ULYSSES BRANDT MD 03/12/22 ULYSSES BRANDT MD Mar 12, 2022 22:46
[2022-03-12 22:57] VITALS: BP 125/80
== END 2022-03-12 22:57 | disposition home or self-care (01) ==
LOC: EDUNIT# 21:14 → ER FS 21:15
DX: H53.8 Other visual disturbances (principal); J32.0 Chronic maxillary sinusitis; H74.8X1 Other specified disorders of right middle ear and mastoid; F17.210 Nicotine dependence, cigarettes, uncomplicated; Z28.310 Unvaccinated for COVID-19
CPT/HCPCS: 70450